=== PATIENT | male | born 1970 | race Caucasian/White ===

== ENCOUNTER 2021-03-05 13:00 | Emergency (ER) | payer OTHER ==
[~2021-03-05] VITALS: Ht 175.3 cm; Wt 79.4 kg
[2021-03-05] MEDS ORDERED: ONDANSETRON ODT4 MG PO (13:28)
== END 2021-03-05 14:19 | disposition home or self-care (01) ==
LOC: ER 13:20
DX: R11.2 Nausea with vomiting, unspecified (principal); R53.83 Other fatigue; R53.1 Weakness; Z86.16 Personal history of COVID-19
CPT/HCPCS: 99283